=== PATIENT | female | born 1945 | race Caucasian/White ===

== ENCOUNTER 2019-04-27 10:39 | Emergency (ER) | payer OTHER ==
[~2019-04-27] VITALS: Ht 157.5 cm; Wt 53.9 kg
[2019-04-27] MEDS ORDERED: CRESTOR10 MG (10:49)
[2019-04-27] MEDS ORDERED: XARELTO15 MG PO (15:03)
[2019-04-28] MEDS ORDERED: XARELTO15 MG PO (14:22)
== END 2019-04-27 18:03 | disposition home or self-care (01) ==
LOC: ER 10:39
DX: I87.2 Venous insufficiency (chronic) (peripheral) (principal); M79.662 Pain in left lower leg

== ENCOUNTER 2019-04-27 18:58 | Inpatient (IN) | payer OTHER ==
[~2019-04-27] VITALS: Ht 157.5 cm; Wt 65.8 kg
[~2019-04-27 18:58] MED LIST: CRESTOR10 MG; XARELTO15 MG PO
--- NOTE | 2019-04-27 19:33 | NUR ---
SE RECIBE AL PACIENTE ALERTA Y ORIENTADO EN EZIO ZACHARY ESFERAS. PACIENTE VIENE POR DOLOR DE PIERNA.
[2019-04-28] MEDS ORDERED: XARELTO15 MG PO (14:22)
== END 2019-04-28 16:08 | disposition home or self-care (01) | DRG 301 ==
LOC: ER 18:58 → MEDJ 21:33
PROVIDERS: ADMIT Internal Medicine
PROC: B54DZZZ Ultrasonography of Bilateral Lower Extremity Veins (ICD-10-PCS; principal; 2019-04-27)
DX: I82.5Z3 Chronic embolism and thrombosis of unspecified deep veins of distal lower extremity, bilateral (principal); I87.2 Venous insufficiency (chronic) (peripheral); E78.2 Mixed hyperlipidemia; I10 Essential (primary) hypertension; Z79.01 Long term (current) use of anticoagulants